=== PATIENT | female | born 1950 | race African-American/Black ===

== ENCOUNTER 2016-07-20 13:10 | Emergency (ER) | payer MEDICARE, MEDICAID ==
[~2016-07-20] VITALS: Ht 162.6 cm; Wt 72.6 kg
[2016-07-20] MEDS ORDERED: Morphine Sulfate 4mg/ml Inj IVP ONE (13:15)
[2016-07-20] MEDS ORDERED: DiphenhydrAMINE 50mg/ml Inj IVP ONE (13:15)
[2016-07-20] MEDS ORDERED: Solu-MEDROL 125mg Inj IVP ONE (13:15)
[2016-07-20] MEDS ORDERED: Metoclopramide 10mg/2ml Inj IVP ONE (13:15)
[2016-07-20] MEDS ORDERED: Albuterol ud Inhalation HHN ONE (13:15)
[2016-07-20] MEDS ORDERED: Ipratropium 0.02% Inh Soln 2.5ml UD HHN ONE (13:15)
[2016-07-20 13:43] VITALS: BP 125/63
[2016-07-20] MEDS ORDERED: DiphenhydrAMINE 50mg/ml Inj IM ONE (13:45)
[2016-07-20] MEDS ORDERED: PredniSONE 20mg tab ORAL ONE (13:45)
[2016-07-20] MEDS: Metoclopramide 10mg/2ml Inj IM SCH ×2 (13:52→13:54)
--- NOTE | 2016-07-20 14:27 | Diagnostic Imaging Report ---
Indication: Chest pain Technique: One view of the chest Comparison: none Findings: There is a left chest port catheter, tip projected at the level of the superior vena cava. There is generalized mild interstitial prominence. There is blunting of left costophrenic sulcus. Heart size is normal. No focal airspace consolidation. Impression: Possible small left pleural effusion Mild bilateral diffuse interstitial disease, acuity indeterminate although suspect chronic Port catheter
--- NOTE | 2016-07-20 14:37 | Diagnostic Imaging Report ---
Indications: Headaches, dizziness, vertigo Technique: Spiral acquisitions obtained through the brain. Angled axial and coronal 5 x 5 mm slices were reconstructed. Total dose length product 1376 mGycm. CTDI vol(s) 7 mGy Comparison: None Findings: Vasogenic edema is seen within the left biparietal and occipital deep white matter. At least 2 slightly hyperdense lesions with low-attenuation centers are seen within this area, the larger of the 2 measuring approximately 3.3 cm in diameter. There is vasogenic edema within the left posterior parietal, occipital, and posterior temporal deep white matter. There is a round lesion of the flores-white junction in this area similar to those seen in the left parietal region that measures 2.2 cm in diameter. There is suggestion of a similar mass in or adjacent to the right caudate head, with a small amount of surrounding edema. Other foci of edema are seen in the inferior right frontal lobe, the anterior right temporal lobe, in the bilateral cerebellar deep white matter. Most of these do not have definite associated mass, although there is a suggestion of a mass in the periphery of the left cerebellar hemisphere. The mass in the caudate head results in some local mass effect, attenuating the frontal horn of the right lateral ventricle. It also results in some local right left midline shift. The atrium and posterior body of the left lateral ventricle are displaced anteriorly by mass effect from the 2 left parietal masses and associated edema. The fourth ventricle appears to be attenuated. No acute hemorrhage. The basilar cisterns are preserved. The calvarium demonstrates multiple osteoblastic lesions. No fractures. The sinuses are clear. The orbits are unremarkable. Impression: Multiple areas of vasogenic edema scattered throughout the brain, as detailed above. Many of these have associated mass lesions. Findings are consistent with extensive brain metastases. Areas of mass effect, as described above Negative for evidence of acute intracranial hemorrhage Evidence of extensive calvarial metastases Findings discussed by phone with Dr. Layton at time of interpretation. The CT scanner at [facility] is accredited by the [employer] and the scans are performed using protocols designed to limit radiation exposure to as low as reasonably achievable to attain images of sufficient resolution adequate for diagnostic evaluation.
[2016-07-20] MEDS ORDERED: levETIRAcetam 500 MG in D5W 110 ML IVPB ONE (14:45)
[2016-07-20] MEDS ORDERED: Dexamethasone 4mg/ml vial IVP ONE (14:45)
--- NOTE | 2016-07-20 14:51 | Emergency Room Report ---
History of Present Illness General Chief Complaint: Dyspnea/Respdistress Source: Patient, EMS Present Illness HPI Patient presents with 2 complaints. One is just a severe headache. His been going on for several days. Sometimes/10. Is worse when she moves about. Stuffiness and pressure. It makes her feel weak and nauseated. She denies any fevers. She's been vomiting. A second problem of shortness of breath patient has interstitial lung disease. She is on oxygen at home. She is stressed by paramedics stay here and they did not give her any treatment in the field because her oxygen saturation on oxygen was adequate. She denies any chest pain. The patient has breast cancer that has metastasized to bones. She is undergoing chemotherapy. She had a recent body scan she claims 2 weeks ago. She states that the CAT scan was negative. Allergies: Coded Allergies: No Known Allergies (Unverified , 07/20/16) Patient History Past Medical History: see triage record Past Surgical History: other - portacath Social History: Reports: smoking - prior Social History Narrative lives at home Reviewed Nursing Documentation: PMH: Agreed, PSxH: Agreed Nursing Documentation-PMH Past Medical History: No History, Except For Hx Asthma: Yes - ' lung disease' Hx Cancer: Yes - bone, breast, liver Review of Systems All Other Systems: negative except mentioned in HPI Physical Exam Vital Signs Date Time Temp Pulse Resp B/P Pulse Ox O2 Delivery O2 Flow Rate FiO2 07/20/16 13:03 99.1 68 17 125/63 94 Room Air 07/20/16 13:55 28 07/20/16 13:55 2.0 Sp02 EP Interpretation: reviewed, normal General Appearance: well appearing, no apparent distress, GCS 15 Head: normocephalic Eyes: left eye other - slight proptosis and exopthalmos, bilateral eye EOMI, bilateral eye PERRL ENT: moist mucus membranes Neck: supple Respiratory: decreased breath sounds, wheezing, expiration, other - portacath Cardiovascular #1: regular rate, rhythm Cardiovascular #2: 2+ radial (R) Gastrointestinal: normal inspection, normal bowel sounds, non tender, no mass, non-distended Musculoskeletal: back normal, gait/station normal, normal range of motion Neurologic: alert, oriented x3, motor strength/tone normal - possible minimal drift L, DTRs symmetric, sensory intact, cerebellar normal, speech normal Psychiatric: anxious Skin: normal inspection, warm/dry Medical Decision Making Diagnostic Impression: Primary Impression: Brain metastases Additional Impressions: Breast cancer Qualified Codes: C50.919 - Malignant neoplasm of unspecified site of unspecified female breast Pleural effusion UTI (urinary tract infection) Qualified Codes: N30.00 - Acute cystitis without hematuria Interstitial lung disease ER Course The patient presents with severe headache for several days. In addition to that she has dyspnea. Her blood differential for the headache and a CT scan needs to be performed because of her age and history of breast cancer. Lab review obtained a chest x-ray and also CT of the head. In addition to that she will be given medication for analgesia. CT returns with cerebral metastases and bony metastases. This is a new diagnosis for this patient. She'll be given Decadron and also Keppra. Chest x-ray reveals left-sided effusion and a Port-A-Cath. Pain greatly improved, but still present when she moves her head about. Patient agrees to use portacath. Labs remarkable for UTI. Chitra garcia Presented to Dr. Hui [facility]. Transfer [facility]. Laboratory Tests Test 07/20/16 15:08 07/20/16 15:30 White Blood Count 6.5 K/UL (4.8-10.8) Red Blood Count 4.69 M/UL (4.20-5.40) Hemoglobin 13.4 G/DL (12.0-16.0) Hematocrit 43.0 % (37.0-47.0) Mean Corpuscular Volume 92 FL (80-99) Mean Corpuscular Hemoglobin 28.6 PG (27.0-31.0) Mean Corpuscular Hemoglobin Concent 31.2 G/DL (32.0-36.0) L Red Cell Distribution Width 16.3 % (11.6-14.8) H Platelet Count 69 K/UL (150-450) L Mean Platelet Volume 10.9 FL (6.5-10.1) H Neutrophils (%) (Auto) % (45.0-75.0) Lymphocytes (%) (Auto) % (20.0-45.0) Monocytes (%) (Auto) % (1.0-10.0) Eosinophils (%) (Auto) % (0.0-3.0) Basophils (%) (Auto) % (0.0-2.0) Neutrophils % (Manual) Pending Lymphocytes % (Manual) Pending Platelet Estimate Pending Platelet Morphology Pending Prothrombin Time 12.0 SEC (9.30-11.50) H Prothrombin Time INR 1.2 (0.9-1.1) H PTT 26 SEC (23-33) Sodium Level 141 mEQ/L (135-145) Potassium Level 3.4 mEQ/L (3.4-4.9) Chloride Level 99 mEQ/L (98-107) Carbon Dioxide Level 25 mEQ/L (20-30) Anion Gap 17 (5-15) H Blood Urea Nitrogen 7 mg/dL (7-23) Creatinine 0.6 mg/dL (0.5-0.9) Estimate Glomerular Filtration Rate > 60 mL/min (>60) Glucose Level 135 mg/dL (74-106) H Lactic Acid Level 2.00 mmol/L (0.66-2.22) Calcium Level 9.3 mg/dL (8.6-10.2) Total Bilirubin 3.0 mg/dL (0.0-1.2) H Direct Bilirubin 0.9 mg/dL (0.1-0.3) H Aspartate Amino Transferase (AST) 80 U/L (5-40) H Alanine Aminotransferase (ALT) 50 U/L (3-33) H Alkaline Phosphatase 78 U/L (35-104) Total Creatine Kinase 875 U/L (26-140) H Troponin I < 0.30 ng/mL (<=0.30) Pro-B-Type Natriuretic Peptide 105 pg/mL (0-125) Total Protein 6.1 g/dL (6.6-8.7) L Albumin 3.7 g/dL (3.5-5.2) Globulin 2.4 g/dL Albumin/Globulin Ratio 1.5 (1.0-2.7) Urine Color Yellow Urine Appearance Clear Urine pH 6.5 (4.5-8.0) Urine Specific [place] 1.010 (1.005-1.035) Urine Protein Negative (NEGATIVE) Urine Glucose (UA) Negative (NEGATIVE) Urine Ketones 1+ (NEGATIVE) H Urine Occult Blood Negative (NEGATIVE) Urine Nitrite Negative (NEGATIVE) Urine Bilirubin Negative (NEGATIVE) Urine Urobilinogen 1 MG/DL (0.0-1.0) H Urine Leukocyte Esterase 1+ (NEGATIVE) H Urine RBC 2-4 /HPF (0 - 2) H Urine WBC 5-10 /HPF (0 - 2) H Urine Squamous Epithelial Cells Few /LPF (NONE/OCC) Urine Bacteria Moderate /HPF (NONE) H Microbiology Date/Time Source Procedure Growth Status 07/20/16 15:08 Nasal Nares Influenza Types A,B Antigen (CINTHIA) - Final Complete EKG Diagnostic Results Rate: normal Rhythm: NSR ST Segments: no acute changes - LAE Rhythm Strip Diag. Results EP Interpretation: yes Rhythm: NSR, no PVC's, no ectopy Chest X-Ray Diagnostic Results EP Interpretation: Yes Findings: no consolidation, no pneumothorax, other - L effusion portacath Number of Views: 1 CT/MRI/US Diagnostic Results CT/MRI/US Diagnostic Results : Imaging Test Ordered: head Impression brain mets and bone mets Last Vital Signs Date Time Temp Pulse Resp B/P Pulse Ox O2 Delivery O2 Flow Rate FiO2 07/20/16 19:50 98.9 104 19 132/77 97 Nasal Cannula 4.0 28 Status: improved Disposition: XFER SHT-TRM HOSP Condition: Serious - but stable for transfer Sanya Layton M.D. Jul 20, 2016 14:51
[2016-07-20] MEDS ORDERED: levETIRAcetam 500mg vial IV ONE (15:14)
[2016-07-20 15:38] LABS: MEAN CORPUSCULAR HEMOGLOBIN 28.6 PG (27.0-31.0); MEAN CORPUSCULAR HGB CONC 31.2 G/DL (32.0-36.0); MEAN CORPUSCULAR VOLUME 92 FL (80-99); MEAN PLATELET VOLUME 10.9 FL (6.5-10.1); PLATELET COUNT 69 K/UL (150-450); RED BLOOD COUNT 4.69 M/UL (4.20-5.40); RED CELL DISTRIBUTION WIDTH 16.3 % (11.6-14.8); WHITE BLOOD COUNT 6.5 K/UL (4.8-10.8)
[2016-07-20 15:40] VITALS: BP 137/74
[2016-07-20 15:46] LABS: INR 1.2 (0.9-1.1)
[2016-07-20 15:52] LABS: TROPONIN I < 0.30 ng/mL (<=0.30)
[2016-07-20 15:55] LABS: ALANINE AMINOTRANSFERASE 50 U/L (3-33); ALBUMIN/GLOBULIN RATIO 1.5 (1.0-2.7); ANION GAP 17 (5-15); ASPARTATE AMINO TRANSFERASE 80 U/L (5-40); CALCIUM 9.3 mg/dL (8.6-10.2); CARBON DIOXIDE 25 mEQ/L (20-30); CHLORIDE 99 mEQ/L (98-107); CREATININE 0.6 mg/dL (0.5-0.9); GLOMERULAR FILTRATION RATE > 60 mL/min (>60); HEMOLYSIS 29; POTASSIUM 3.4 mEQ/L (3.4-4.9); SODIUM 141 mEQ/L (135-145); TOTAL PROTEIN 6.1 g/dL (6.6-8.7)
[2016-07-20 15:57] LABS: APPEARANCE,URINE CLEAR; KETONES,URINE 1+ (NEGATIVE); LEUKOCYTE ESTERASE ,URINE 1+ (NEGATIVE); NITRITE,URINE NEGATIVE (NEGATIVE); PH,URINE 6.5 (4.5-8.0); PROTEIN,URINE NEGATIVE (NEGATIVE); UROBILINOGEN,URINE 1 MG/DL (0.0-1.0)
[2016-07-20 15:57] LABS: REFLEX LACTIC ACID YES OR NO YES
[2016-07-20 16:10] LABS: BACTERIA,URINE MODERATE /HPF; SQUAMOUS EPITHELIAL CELL,UR FEW /LPF (NONE/OCC)
[2016-07-20 16:16] LABS: BILIRUBIN,DIRECT 0.9 mg/dL (0.1-0.3)
[2016-07-20 16:21] LABS: EOSINOPHILS % (MANUAL) 1 % (0-3); LYMPHOCYTES % (MANUAL) 17 % (20-45); NEUTROPHILS % (MANUAL) 75 % (45-75); TOTAL CELLS COUNTED 100
[2016-07-20 16:22] LABS: BAND NEUTROPHILS % (MANUAL) 0 % (0-8); BASOPHILS % (MANUAL) 0 % (0-2); PLATELET ESTIMATE DECREASED; PLATELET MORPHOLOGY NORMAL
[2016-07-20] MEDS ORDERED: cefTRIAXone 1 GM in NS 55 ML IVPB ONE (16:30)
[2016-07-20 19:32] VITALS: BP 132/77
[2016-07-20 19:50] VITALS: BP 132/77
--- NOTE | 2016-07-22 15:15 | Cardiology Report ---
APPROVED REPORT EKG Measurement Heart [id number] Normal sinus rhythm with sinus arrhythmia Possible Left atrial enlargement Borderline ECG
== END 2016-07-20 19:52 | disposition short-term general hospital (02) ==
LOC: EDBD 13:10 → EMR 14:04
DX: C50.919 Malignant neoplasm of unspecified site of unspecified female breast (principal); C79.31 Secondary malignant neoplasm of brain; C79.51 Secondary malignant neoplasm of bone; F17.200 Nicotine dependence, unspecified, uncomplicated; J90 Pleural effusion, not elsewhere classified; N30.00 Acute cystitis without hematuria; J84.9 Interstitial pulmonary disease, unspecified
CPT/HCPCS: 36415; 70450; 71010; 80053; 81003; 82248; 82550; 83605; 83880; 84484; 85007; 85025; 85610; 85730; 86710; 87040; 87086; 93005; 94640; 94664; 96360; 96361; 96372; 96374; 96375; 99285; J0696; J1100; J1200; J1953; J2765